=== PATIENT | female | born 1940 | race African-American/Black ===

== ENCOUNTER 2020-10-05 16:10 | Emergency (ER) | payer OTHER ==
[~2020-10-05] VITALS: Ht 149.9 cm; Wt 66.2 kg
[2020-10-05 21:48] VITALS: BP 189/68
== END 2020-10-06 00:39 | disposition home or self-care (01) ==
LOC: ER 16:10
DX: S09.90XA Unspecified injury of head, initial encounter (principal); S16.1XXA Strain of muscle, fascia and tendon at neck level, initial encounter; S00.83XA Contusion of other part of head, initial encounter; X58.XXXA Exposure to other specified factors, initial encounter; Y93.89 Activity, other specified; Y92.89 Other specified places as the place of occurrence of the external cause; Y99.8 Other external cause status
CPT/HCPCS: 70450; 72125; 93005

== ENCOUNTER 2022-08-26 05:03 | Inpatient (IN) | payer OTHER, MEDICAID ==
[~2022-08-26] VITALS: Ht 149.9 cm; Wt 64.8 kg
[2022-08-26] VITALS (16 sets, daily range): BP systolic 112–184; BP diastolic 49–98
[2022-08-26] MEDS ORDERED: HEPARIN SODIUM (PORCINE) 5000 UNITS/ML 1ML VIAL ONE ×3 (05:11→05:54)
[2022-08-26] MEDS ORDERED: CLOPIDOGREL 300 MG TAB ONE (05:11)
[2022-08-26] MEDS ORDERED: CLOPIDOGREL BISULFATE 75 MG TAB PO ONE (05:15)
[2022-08-26] MEDS ORDERED: ATORVASTATIN 20 MG TAB PO ONE (05:15)
[2022-08-26] MEDS ORDERED: HEPARIN 1,000 UNITS/ml 1ML VIAL IV ONE (05:15)
[2022-08-26] MEDS ORDERED: HEPARIN SODIUM (PORCINE) 5000 UNITS/ML 1ML VIAL IV ONE (05:15)
[2022-08-26] MEDS ORDERED: TICAGRELOR 90 MG TAB PO ONE (05:15)
[2022-08-26 05:34] LABS: Basophils # (auto) 0.1 10 ^3/uL (0-0.2); Basophils % (auto) 0.4 % (0.0-2.0); Eosinophils # (auto) 0 10 ^3/uL (0-0.8); Eosinophils % (auto) 0.2 % (0.0-7.0); Hematocrit 42.1 % (36.0-46.0); Hemoglobin 13.8 g/dL (12.2-16.2); Lymphocytes # (auto) 3.6 10 ^3/uL (0.4-5.4); Mean Corpuscular Hemoglobin 30.2 pg (28.0-32.0); Mean Corpuscular Hgb Conc. 32.7 g/dL (32.0-36.0); Mean Corpuscular Volume 92.5 fL (80.0-100.0); Monocytes # (auto) 0.8 10 ^3/uL (0-1.3); Monocytes % (auto) 4.9 % (0.0-12.0); Neutrophils % (auto) 72.5 % (37.0-80.0); Red Blood Cells 4.56 10^6/uL (4.0-5.20); Red Cell Distribution Width 14.2 % (11.8-14.3); White Blood Cell 16.5 10^3/uL (4.4-10.8)
[2022-08-26] MEDS ORDERED: MORPHINE SULFATE INJ 2 MG/ml SYRG ONE (05:42)
[2022-08-26] MEDS ORDERED: NITROGLYCERIN 0.4 MG SL TAB SL ONE (05:42)
[2022-08-26] MEDS ORDERED: MORPHINE SULFATE 4 MG/ML SYR/VIAL IV ONE (05:45)
[2022-08-26] MEDS ORDERED: NITROGLYCERIN 0.4 MG SL TAB SL PRN ×2 (05:45→06:00)
[2022-08-26 05:48] LABS: Albumin 3.7 g/dL (3.4-5.0); Calcium 10.1 mg/dL (8.5-10.1); Magnesium 2.1 mg/dL (1.6-2.6)
[2022-08-26 05:52] LABS: BUN/Creatinine Ratio 20.7 (10.0-20.0); Bilirubin, Total 0.3 mg/dL (0.2-1.0); Total Protein 7.4 g/dL (6.4-8.2)
[2022-08-26] MEDS ORDERED: HEPARIN IN NS 1000Units/500mL 1,500 ML ONE (05:52)
[2022-08-26] MEDS ORDERED: IODIXANOL 320MG/ML 100ML BTL IV ONE (05:52)
[2022-08-26] MEDS ORDERED: LIDOCAINE 2%HCL (LOCAL ANESTH.) INJ 20ML MDV ONE (05:52)
[2022-08-26] MEDS ORDERED: ANGIOMAX 250 MG VIAL IV ONE (05:53)
[2022-08-26] MEDS ORDERED: fentaNYL CITRATE 100 MCG/2 ML VL ONE (05:54)
[2022-08-26] MEDS ORDERED: SODIUM CHL 0.9% 50 ML ONE (05:54)
[2022-08-26] MEDS ORDERED: MIDAZOLAM HCL 2MG/2ML 2ml VIAL (1mg/ml) ONE (05:54)
[2022-08-26] MEDS ORDERED: VERAPAMIL 2.5MG/ML INJ 2ML VIAL IV ONE (05:55)
[2022-08-26] MEDS ORDERED: DEXTROSE (50%) 50ML SYRG IV PRN (06:00)
[2022-08-26] MEDS ORDERED: HYDROcodone-ACET 5/325MG TAB PO PRN (06:00)
[2022-08-26] MEDS ORDERED: DOCUSATE SOD 100 MG CAP PO PRN (06:00)
[2022-08-26] MEDS ORDERED: MORPHINE SULFATE INJ 2 MG/ml SYRG IV PRN (06:00)
[2022-08-26] MEDS ORDERED: ACETAMINOPHEN 325 MG TAB PO PRN (06:00)
[2022-08-26] MEDS: SODIUM CHLORIDE 0.9% 1,000 ML IV SCH ×2 (06:00→22:40)
[2022-08-26] MEDS ORDERED: cefTRIAXone 1GM/50ML D5W 50 ML IV ONE (06:00)
[2022-08-26 06:03] LABS: INR 1.01 (0.9-1.15)
[2022-08-26 06:15] LABS: Partial Thromboplastin Time > 139.0 sec (24.6-33.4)
[2022-08-26 06:20] LABS: Urine Bacteria FEW /hpf (None Seen); Urine Blood Negative /uL (Negative); Urine Hyaline Cast FEW /lpf (0 - 2); Urine Mucus FEW (None Seen); Urine Specific Gravity 1.015 (1.001-1.035); Urine WBC 2 /hpf (0 - 5)
[2022-08-26] MEDS ORDERED: EPTIFIBATIDE INJ (2MG/ML) 10ML VIAL IV ONE ×2 (06:31→06:57)
[2022-08-26] MEDS ORDERED: ATROPINE SULF 1 MG/10ml SYR ONE (06:43)
[2022-08-26] MEDS ORDERED: IOHEXOL 350 MG/ML 100ML IJ ONE (06:54)
[2022-08-26] MEDS ORDERED: EPTIFIBATIDE DRIP(0.75MG/ML) 100 ML IV ONE (06:54)
[2022-08-26] MEDS: InsuLIN REG 1unit/0.01ml Soln (100units/ml) SC SCH ×4 (07:00→21:45)
[2022-08-26] MEDS: TICAGRELOR 90 MG TAB PO SCH ×2 (07:39→21:45)
[2022-08-26] MEDS: EPTIFIBATIDE DRIP(0.75MG/ML) 100 ML IV SCH ×2 (07:39→15:35)
[2022-08-26] MEDS ORDERED: CLOPIDOGREL BISULFATE 75 MG TAB PO SCH (10:00)
[2022-08-26] MEDS: MORPHINE SULFATE INJ 2 MG/ml SYRG IV PRN ×2 (10:45→17:17)
[2022-08-26] MEDS: hydrALAZINE HCL 20 MG/ML VL IV PRN ×2 (10:46→17:15)
[2022-08-26] MEDS: ONDANSETRON HCL 4 MG/2 ML VIAL IV PRN ×2 (10:47→18:30)
[2022-08-26] MEDS: ACCU-CHEK COMFORT CURVE STRIP VI SCH ×3 (11:30→21:45)
[2022-08-26] MEDS ORDERED: MEMA1TAB5 PO (12:04)
[2022-08-26] MEDS ORDERED: LATA0.0019 EACHEYE (12:04)
[2022-08-26] MEDS ORDERED: TIMO0.5S32 EACHEYE (12:04)
[2022-08-26] MEDS ORDERED: ATOR10TA52 PO (12:04)
[2022-08-26] MEDS ORDERED: DAPA1TAB PO (12:04)
[2022-08-26] MEDS ORDERED: AMLO-496 PO (12:04)
[2022-08-26] MEDS ORDERED: MIRA50TA PO (12:05)
[2022-08-26] MEDS: MEMANTINE HCL 5 MG TAB PO SCH (12:11)
[2022-08-26] MEDS: ASPirin 81 mg TAB PO SCH (12:11)
[2022-08-26] MEDS: FAMOTIDINE (10MG/ML) 2ML VL IV SCH (12:11)
[2022-08-26] MEDS: ATORVASTATIN 20 MG TAB PO SCH (21:45)
[2022-08-27 05:00] VITALS: BP 125/70
[2022-08-27] MEDS: ACCU-CHEK COMFORT CURVE STRIP VI SCH ×4 (06:32→22:00)
[2022-08-27] MEDS: InsuLIN REG 1unit/0.01ml Soln (100units/ml) SC SCH ×4 (06:32→21:46)
[2022-08-27] MEDS: cefTRIAXone 1GM/50ML D5W 50 ML IV SCH (08:56)
[2022-08-27] MEDS: MEMANTINE HCL 5 MG TAB PO SCH (08:56)
[2022-08-27] MEDS: ASPirin 81 mg TAB PO SCH (08:56)
[2022-08-27] MEDS: TICAGRELOR 90 MG TAB PO SCH ×2 (08:56→21:52)
[2022-08-27] MEDS: FAMOTIDINE (10MG/ML) 2ML VL IV SCH (08:56)
[2022-08-27] MEDS ORDERED: BRIM0.159 OP (10:15)
[2022-08-27 13:00] VITALS: BP 133/51
[2022-08-27 17:00] VITALS: BP 131/57
[2022-08-27] MEDS: ATORVASTATIN 20 MG TAB PO SCH (21:51)
[2022-08-27 22:00] VITALS: BP 138/79
[2022-08-28 05:00] VITALS: BP 171/74
[2022-08-28] MEDS: InsuLIN REG 1unit/0.01ml Soln (100units/ml) SC SCH ×4 (05:34→22:00)
[2022-08-28] MEDS: ACCU-CHEK COMFORT CURVE STRIP VI SCH ×4 (05:39→22:00)
[2022-08-28 07:12] LABS: Basophils # (auto) 0 10 ^3/uL (0-0.2); Basophils % (auto) 0.1 % (0.0-2.0); Eosinophils # (auto) 0.1 10 ^3/uL (0-0.8); Eosinophils % (auto) 0.9 % (0.0-7.0); Hematocrit 37.9 % (36.0-46.0); Hemoglobin 12.2 g/dL (12.2-16.2); Lymphocytes # (auto) 2.3 10 ^3/uL (0.4-5.4); Lymphocytes % (auto) 24.3 % (10.0-50.0); Mean Corpuscular Hemoglobin 30.8 pg (28.0-32.0); Mean Corpuscular Hgb Conc. 32.2 g/dL (32.0-36.0); Mean Corpuscular Volume 95.8 fL (80.0-100.0); Monocytes # (auto) 0.8 10 ^3/uL (0-1.3); Monocytes % (auto) 8.5 % (0.0-12.0); Neutrophils # (auto) 6.4 10 ^3/uL (1.6-8.6); Neutrophils % (auto) 66.2 % (37.0-80.0); Red Blood Cells 3.96 10^6/uL (4.0-5.20); Red Cell Distribution Width 14.6 % (11.8-14.3); White Blood Cell 9.7 10^3/uL (4.4-10.8)
[2022-08-28 07:28] LABS: Anion Gap 9 (5-15); BUN/Creatinine Ratio 27.5 (10.0-20.0); Blood Urea Nitrogen 25 mg/dL (7-18); Calcium 8.5 mg/dL (8.5-10.1); Carbon Dioxide 17 mmol/L (21-32); Chloride 111 mmol/L (98-107); GFR African American 76 mL/min; GFR Non-African American 63 mL/min; Glucose 135 mg/dL (74-106); Potassium 4.1 mmol/L (3.5-5.1); Sodium 137 mmol/L (136-145)
[2022-08-28] MEDS: ASPirin 81 mg TAB PO SCH (08:59)
[2022-08-28] MEDS: cefTRIAXone 1GM/50ML D5W 50 ML IV SCH (08:59)
[2022-08-28] MEDS: MEMANTINE HCL 5 MG TAB PO SCH (08:59)
[2022-08-28] MEDS: FAMOTIDINE (10MG/ML) 2ML VL IV SCH (08:59)
[2022-08-28 09:00] VITALS: BP 154/66
[2022-08-28] MEDS: TICAGRELOR 90 MG TAB PO SCH ×2 (09:00→22:06)
[2022-08-28 13:00] VITALS: BP 151/59
[2022-08-28] MEDS ORDERED: ASPI-325 PO (15:35)
[2022-08-28] MEDS ORDERED: METO-6 PO (15:35)
[2022-08-28] MEDS ORDERED: TICA90TA PO (15:35)
[2022-08-28] MEDS: METOPROLOL SUCCINATE XL 50 MG TAB PO SCH (16:58)
[2022-08-28 17:00] VITALS: BP 145/61
[2022-08-28 22:00] VITALS: BP 136/68
[2022-08-28] MEDS: ATORVASTATIN 20 MG TAB PO SCH (22:06)
[2022-08-29 04:53] VITALS: BP 145/56
[2022-08-29] MEDS: InsuLIN REG 1unit/0.01ml Soln (100units/ml) SC SCH ×2 (05:37→13:21)
[2022-08-29] MEDS: ACCU-CHEK COMFORT CURVE STRIP VI SCH ×2 (06:30→11:30)
[2022-08-29 09:00] VITALS: BP 138/68
[2022-08-29] MEDS: MEMANTINE HCL 5 MG TAB PO SCH (10:17)
[2022-08-29] MEDS: ASPirin 81 mg TAB PO SCH (10:17)
[2022-08-29] MEDS: TICAGRELOR 90 MG TAB PO SCH (10:18)
[2022-08-29] MEDS: METOPROLOL SUCCINATE XL 50 MG TAB PO SCH (10:19)
[2022-08-29] MEDS ORDERED: ATOR40TA52 PO (11:53)
[2022-08-29 13:00] VITALS: BP 158/68
[2022-08-29 13:36] VITALS: BP 138/68
== END 2022-08-29 15:52 | disposition home or self-care (01) | DRG 247 ==
LOC: EDBD 05:03 → ER 05:03 → CATH 1 05:42 → OVERFLOW 05:59 → TELE-WESTW 09:22
PROVIDERS: ADMIT Nurse Practitioner Family; ATTEND Nurse Practitioner Acute Care
PROC: 027034Z Dilation of Coronary Artery, One Artery with Drug-eluting Intraluminal Device, Percutaneous Approach (ICD-10-PCS; principal; 2022-08-26)
PROC: 4A023N7 Measurement of Cardiac Sampling and Pressure, Left Heart, Percutaneous Approach (ICD-10-PCS; 2022-08-26)
PROC: B211YZZ Fluoroscopy of Multiple Coronary Arteries using Other Contrast (ICD-10-PCS; 2022-08-26)
PROC: B215YZZ Fluoroscopy of Left Heart using Other Contrast (ICD-10-PCS; 2022-08-26)
DX: I21.19 ST elevation (STEMI) myocardial infarction involving other coronary artery of inferior wall (principal); R65.10 Systemic inflammatory response syndrome (SIRS) of non-infectious origin without acute organ dysfunction; E11.65 Type 2 diabetes mellitus with hyperglycemia; F03.90 Unspecified dementia, unspecified severity, without behavioral disturbance, psychotic disturbance, mood disturbance, and anxiety; I10 Essential (primary) hypertension; D72.829 Elevated white blood cell count, unspecified; E78.00 Pure hypercholesterolemia, unspecified; I25.10 Atherosclerotic heart disease of native coronary artery without angina pectoris; Z79.02 Long term (current) use of antithrombotics/antiplatelets; Z79.899 Other long term (current) drug therapy; Z95.5 Presence of coronary angioplasty implant and graft
CPT/HCPCS: 36415; 71045; 80048; 80053; 81001; 82962; 83735; 83880; 84484; 85025; 85610; 85730; 92928; 93005; 93306; 93458; 93971; 96374; 96375; 99152; 99153; G0378; J0696; J1815; J2250; J2405; J3490; Q9967

== ENCOUNTER 2023-06-19 00:05 | Emergency (ER) | payer OTHER, MEDICAID ==
[~2023-06-19] VITALS: Ht 149.9 cm; Wt 53.6 kg
[~2023-06-19 00:05] MED LIST: AMLO1TAB23 PO; ASPI-325 PO; ATOR40TA52 PO; BRIM0.159 OP; DAPA1TAB PO; LATA0.008 EACHEYE; MEMA1TAB5 PO; METO-6 PO; MIRA50TA PO; TICA90TA PO; TIMO0.5S32 EACHEYE
[2023-06-19] MEDS ORDERED: INDO-34 PO (02:10)
[2023-06-19 02:50] VITALS: BP 133/66; PULSE 87; RESP 14; TEMP 98.4; O2SAT 99
[2023-06-19] MEDS: KETOROLAC TROMETH 60MG/2ML VIAL IM ONE (02:52)
== END 2023-06-19 03:07 | disposition home or self-care (01) ==
LOC: ER 00:05
DX: M10.9 Gout, unspecified (principal); I10 Essential (primary) hypertension; E11.9 Type 2 diabetes mellitus without complications; E78.5 Hyperlipidemia, unspecified; Z79.82 Long term (current) use of aspirin; Z79.899 Other long term (current) drug therapy
CPT/HCPCS: 96372; 99283; J1885

== ENCOUNTER 2024-04-06 09:24 | Emergency (ER) | payer MEDICARE, MEDICAID ==
[~2024-04-06] VITALS: Ht 149.9 cm; Wt 52.0 kg
[~2024-04-06 09:24] MED LIST changes: +INDO-34 PO
[2024-04-06 10:44] VITALS: BP 161/64; PULSE 75; RESP 16; TEMP 98.7; O2SAT 98
--- NOTE | 2024-04-06 10:57 | ED.PDOC ---
Musculoskeletal HPI Comments Pleasant 83-year-old female with a history of hypertension glaucoma arthritis diabetes that is brought in by daughter with a chief complaint of atraumatic nonradiating left anterior patella pain x1 day. Onset was sudden and occurred last night before going to bed and pain has been persistent since. Pain is currently rated as moderate to severe and worsens with flexion-extension of the knees. Symptoms worsened with ambulation and improves at rest. Has not tried medications that alleviate her pain. Denies trauma to the knee or recent fall Denies skin color changes around the knee Denies masses around the knee Denies popping/locking/giving out of the knee Denies fever chills night sweats nausea vomiting Denies previous surgeries to the knee nor significant injury Chief Complaint: Lower Extremity Time Seen by MD: 10:00 Primary Care Provider: Jerson Reviewed Notes: Nurses Notes, Medications, Allergies Allergies: Coded Allergies: NO KNOWN ALLERGIES (Unverified , 11/10/14) Home Meds Active Scripts Diclofenac Sodium (Topical) (Voltaren Arthritis Pain) 1 % Gel, 1 GRAMS EX TID for 10 Days, #60 GRAMS 0 Refills Prov:BHARATHI LÓPEZ GARMENT STEAMER 04/06/24 Prednisone (Prednisone) 20 Mg Tab, 40 MG PO DAILY for 5 Days, #10 TAB 0 Refills Prov:BHARATHI LÓPEZ GARMENT STEAMER 04/06/24 Indomethacin (Indocin) 25 Mg Cp, 1 CAP PO TID PRN, #60 CAP Prov:KADEN QUINN DO 06/19/23 Atorvastatin Calcium (ATORVASTATIN CALCIUM) 40 Mg Tab, 1 TAB PO DAILY, #90 TAB 1 Refill Prov:OSMAN WESTBROOK GARMENT STEAMER 08/29/22 Ticagrelor Base (BRILINTA) 90 Mg Tab, 90 MG PO BID for 90 Days, #180 TAB Prov:OSMAN WESTBROOK GARMENT STEAMER 08/28/22 Aspirin (Aspirin Low Dose) 81 Mg Tab, 81 MG PO DAILY for 60 Days, #60 TAB Prov:OSMAN WESTBROOK GARMENT STEAMER 08/28/22 Metoprolol Succinate (Toprol Xl) 50 Mg Tab, 25 MG PO DAILY for 60 Days, #30 TAB Prov:OSMAN WESTBROOK GARMENT STEAMER 08/28/22 Reported Medications Brimonidine Tartrate (Brimonidine Tartrate) 0.15 % Rosario, 1 DROP OP DAILY, DROP 08/27/22 Mirabegron Base (MYRBETRIQ) 50 Mg Tab, 50 MG PO DAILY, TAB 08/26/22 Memantine Hydrochloride (Memantine HCl) 10 Mg Tab, 1 TAB PO BID 08/26/22 Dapagliflozin-Metformin HCl (Xigduo Xr 10-1000 mg) 1 Tab Tab, 1 TAB PO DAILY 08/26/22 Amlodipine Besylate (Amlodipine Besylate) 10 Mg Tab, 1 TAB PO DAILY 08/26/22 Latanoprost (LATANOPROST) 0.005 % Rosario, EACHEYE 08/26/22 Timolol Maleate (Ophth) (Timolol Maleate) 0.5 % Rosario, EACHEYE 08/26/22 Information Source: Patient Mode of Arrival: Wheelchair Past Medical History PAST MEDICAL HISTORY: DM, High Lipids, HTN Surgical History: Denies all surgeries CROP DUSTER History: No Pertinent CROP DUSTER History Family History Family History: Reviewed,noncontributory to illness, Unobtainable Social History Smoker: Non-Smoker Alcohol: Denies ETOH Use Drugs: Denies Drug Use Lives In: Home All Other Systems: Reviewed and Negative (Per HPI) Physical Exam General Appearance: No Apparent Distress, Normal HEENT: Normal ENT Inspection, Pharynx Normal, TMs Normal Neck: Full Range of Motion, Non-Tender, Normal, Normal Inspection Respiratory: Chest Non-Tender, Lungs Clear, No Accessory Muscle Use, No Respiratory Distress, Normal Breath Sounds Cardiovascular: No Edema, No JVD, No Murmur, No Gallop, Normal Peripheral Pulses, Regular Rate/Rhythm Breast Exam: Deferred Gastrointestinal: No Organomegaly, Non Tender, No Pulsatile Mass, Normal Bowel Sounds, Soft Genitalia: Deferred Pelvic: Deferred Rectal: Deferred Extremities: No calf tenderness, Normal capillary refill, Normal inspection, Normal range of motion, Non-tender, No pedal edema Musculoskeletal : Location: Left Extremity Location: Knee (Normal on inspection. Full flexion-extension. Full passive and active range of motion.) Apperance: Normal Neurologic: Alert, supervisor webbing II-XII nml as Tested, No Motor Deficits, Normal Affect, Normal Mood, No Sensory Deficits Cerebellar Function: Normal Reflexes: Normal Skin: Dry, Normal Color, Warm Lymphatic: No Adenopathy Was a procedure done? Was a procedure done?: No Differential Diagnosis EXT Differential Diagnosis: Sprain, Arthritis, Other X-Ray, Labs, Meds, VS Vital Signs Date Time Temp Pulse Resp B/P (MAP) Pulse Ox O2 Delivery O2 Flow Rate FiO2 04/06/24 10:44 75 16 98 Room Air 04/06/24 10:44 98.7 75 16 161/64 (96) 98 98.7 04/06/24 09:59 98.7 75 16 161/64 (96) 98 Current Medications Medications (Trade) Dose Ordered Sig/Isaac Route Start Time Stop Time Status Last Admin Acetaminophen/ Hydrocodone Bitart ([place] 5/325MG Tab) 1 tab ONCE ONCE PO 04/06/24 11:00 04/06/24 11:01 DC 04/06/24 11:15 PATIENT: RAYO PATRICIA LACCT: [id number]: [id number] : 1940 LOC: ER ROOM / BED: / AGE / SEX: 83 / F ADM STATUS: REG ER SERVICE 1055 ORDERING PHYSICIAN: BHARATHI LÓPEZ GARMENT STEAMER PROCEDURE(s): LKNE4 - L KNEE 4V XRAY REASON: Pain/OA?? ORDER NUMBER(s): [id number], ACCESSION NUMBER(s): [id number] CLINICAL INDICATION: Pain/OA TECHNIQUE: 4 radiographic views of the left knee were obtained. Comparison: None FINDINGS/IMPRESSION: There is no evidence of acute fracture or dislocation. Superior patellar enthesophyte. The visualized joint space is well maintained. The alignment is anatomical. There is no radiopaque foreign body. ATED BY: GREGORIA FRAUSTO MD DICTATED DATE/TIME: 04/06/24 113 SIGNED BY: GREGORIA FRAUSTO MD SIGNED DATE/TIME: 04/06/24 113 CC: X-Ray, Labs, Meds, VS Comment Pleasant 83-year-old female with a history of hypertension glaucoma arthritis diabetes that is brought in by daughter with a chief complaint of atraumatic non radiating left anterior patella pain x1 day. History obtained from patient Although considered I do not think the patient needs CBC labs nor UA as patient is alert oriented denies any associated symptoms X-ray was ordered to rule out arthritis and findings show Superior patellar enthesophyte. Medication was prescribed for the presenting symptoms Copy of x-ray was given to the patient's and advised to follow up with PCP return precautions discussed Time of 1ST Reevaluation: 11:54 Reevaluation 1ST: Improved Patient Education/Counseling: Diagnosis, Treatment Family Education/Counseling: Diagnosis, Treatment Departure 1 Departure Time of Disposition: 11:56 Impression: Primary Impression: Pain of left patella Disposition: 01 HOME / SELF CARE / HOMELESS Condition: Stable e-Prescriptions Diclofenac Sodium (Topical) (Voltaren Arthritis Pain) 1 % Gel 1 GRAMS EX TID for 10 Days, #60 GRAMS 0 Refills Prov: BHARATHI LÓPEZ NP 04/06/24 Prednisone (Prednisone) 20 Mg Tab 40 MG PO DAILY for 5 Days, #10 TAB 0 Refills Prov: BHARATHI LÓPEZ NP 04/06/24 Discharged With: Relative Critical Care Note Critical Care Time?: No Stability Stability form required: No Heart Score Heart Score: Heart Score Response (Comments) Value History N/A 0 EKG N/A 0 Age N/A 0 Risk Factors N/A 0 Troponin N/A 0 Total 0 BHARATHI LÓPEZ NP Apr 06, 2024 10:57
[2024-04-06] MEDS: HYDROcodone-ACET 5/325MG TAB PO ONE (11:15)
--- NOTE | 2024-04-06 11:35 | DVH ---
CLINICAL INDICATION: Pain/OA TECHNIQUE: 4 radiographic views of the left knee were obtained. Comparison: None FINDINGS/IMPRESSION: There is no evidence of acute fracture or dislocation. Superior patellar enthesophyte. The visualized joint space is well maintained. The alignment is anatomical. There is no radiopaque foreign body.
[2024-04-06] MEDS ORDERED: DICL1GEL59 EX (11:56)
[2024-04-06] MEDS ORDERED: PRED20TA2 PO (11:56)
== END 2024-04-06 12:42 | disposition home or self-care (01) ==
LOC: ER 09:24
DX: M25.562 Pain in left knee (principal); I10 Essential (primary) hypertension; E11.9 Type 2 diabetes mellitus without complications; Z79.02 Long term (current) use of antithrombotics/antiplatelets; Z79.52 Long term (current) use of systemic steroids; Z79.82 Long term (current) use of aspirin; Z79.84 Long term (current) use of oral hypoglycemic drugs; Z79.899 Other long term (current) drug therapy
CPT/HCPCS: 73564

== ENCOUNTER 2024-06-02 20:05 | Emergency (ER) | payer OTHER, MEDICAID ==
[~2024-06-02] VITALS: Ht 149.9 cm; Wt 50.0 kg
[~2024-06-02 20:05] MED LIST changes: +DICL1GEL59 EX; +PRED20TA2 PO
--- NOTE | 2024-06-02 21:24 | DVH ---
XY L FOOT 2 VIEW XRAY, June 02, 2024 INDICATION: swelling TECHNICAL DATA: Frontal, oblique and lateral views were obtained of the left foot. COMPARISON: None FINDINGS: There is moderate soft tissue swelling involving the dorsum of the foot in the lower extremity and ge neral there is a small osteophyte projecting from the attachment of the plantar fascia calcaneus. Ar ch is well-maintained bones are mildly osteopenic there are no fractures or dislocations or evidence for osteomyelitis or destructive changes. The articulations appear to be normal. There is some eviden ce for interdigital arterial sclerosis involving the space between the 1st and 2nd metatarsals IMPRESSION: 1. Swelling. And atherosclerotic changes.
--- NOTE | 2024-06-02 22:10 | ED.PDOC ---
History of Present Illness HPI Comments 84 y/o F, with a Hx of arthritis, dementia, DM, glaucoma, gout, HLD, HTN, [place], PTCA, and TIA, presents with daughter for c/o 1st digit on left foot pain, swelling, and redness and left-ankle swelling, today. Per daughter, patient endorses on noticing symptoms to her foot that have been ongoing for the past 2x days. Patient also comments on ankle swelling that has been ongoing for a prolong period on time that she is unable to elaborate on. She endorses on no recent injuries, sick contact, travel, substance abuse, or other relevant or pertinent information, with exception of protein inclusive diet, lately. Patient has no reported chest pain, shortness of breath, fever, chills, numbness, tingling, or other associated symptoms or modifiers at this time. Chief Complaint: Lower Extremity Time Seen by MD: 21:30 Primary Care Provider: Jerson Reviewed Notes: Nurses Notes, Medications, Allergies Allergies: Coded Allergies: NO KNOWN ALLERGIES (Unverified , 11/10/14) Home Meds Active Scripts Diclofenac Sodium (Topical) (Voltaren Arthritis Pain) 1 % Gel, 1 GRAMS EX TID for 10 Days, #60 GRAMS 0 Refills Prov:BHARATHI LÓPEZ PRODUCTION LINE ASSEMBLER 04/06/24 Prednisone (Prednisone) 20 Mg Tab, 40 MG PO DAILY for 5 Days, #10 TAB 0 Refills Prov:BHARATHI LÓPEZ PRODUCTION LINE ASSEMBLER 04/06/24 Indomethacin (Indocin) 25 Mg Cp, 1 CAP PO TID PRN, #60 CAP Prov:KADEN QUINN DO 06/19/23 Atorvastatin Calcium (ATORVASTATIN CALCIUM) 40 Mg Tab, 1 TAB PO DAILY, #90 TAB 1 Refill Prov:OSMAN WESTBROOK PRODUCTION LINE ASSEMBLER 08/29/22 Ticagrelor Base (BRILINTA) 90 Mg Tab, 90 MG PO BID for 90 Days, #180 TAB Prov:OSMAN WESTBROOK PRODUCTION LINE ASSEMBLER 08/28/22 Aspirin (Aspirin Low Dose) 81 Mg Tab, 81 MG PO DAILY for 60 Days, #60 TAB Prov:OSMAN WE[place] PRODUCTION LINE ASSEMBLER 08/28/22 Metoprolol Succinate (Toprol Xl) 50 Mg Tab, 25 MG PO DAILY for 60 Days, #30 TAB Prov:OSMAN WESTBROOK PRODUCTION LINE ASSEMBLER 08/28/22 Reported Medications Brimonidine Tartrate (Brimonidine Tartrate) 0.15 % Rosario, 1 DROP OP DAILY, DROP 08/27/22 Mirabegron Base (MYRBETRIQ) 50 Mg Tab, 50 MG PO DAILY, TAB 08/26/22 Memantine Hydrochloride (Memantine HCl) 10 Mg Tab, 1 TAB PO BID 08/26/22 Dapagliflozin-Metformin HCl (Xigduo Xr 10-1000 mg) 1 Tab Tab, 1 TAB PO DAILY 08/26/22 Amlodipine Besylate (Amlodipine Besylate) 10 Mg Tab, 1 TAB PO DAILY 08/26/22 Latanoprost (LATANOPROST) 0.005 % Rosario, EACHEYE 08/26/22 Timolol Maleate (Ophth) (Timolol Maleate) 0.5 % Rosario, EACHEYE 08/26/22 Information Source: Patient, Relative (Child) Mode of Arrival: Wheelchair Severity: Moderate Timing: Days Duration: Since onset Prehospital treatment: None Past Medical History PAST MEDICAL HISTORY: Arthritis, Dementia, DM, Gout, High Lipids, HTN, [place], TIA Past Medical History (Other): glaucoma Surgical History: PTCA CANDY FORMING MACHINE OPERATOR History: No Pertinent CANDY FORMING MACHINE OPERATOR History Family History Family History: Reviewed,noncontributory to illness, Unobtainable Social History Smoker: Non-Smoker Alcohol: Denies ETOH Use Drugs: Denies Drug Use Lives In: Home Musculoskeletal: reports: others (1st digit on left foot pain and swelling, left-ankle swelling ) Integumetry: reports: others (redness to 1st digit on left foot ) All Other Systems: Reviewed and Negative (negative unless otherwise stated above or in HPI) Physical Exam General Appearance: No Apparent Distress, Normal HEENT: Normal ENT Inspection, Pharynx Normal, TMs Normal Neck: Full Range of Motion, Non-Tender, Normal, Normal Inspection Respiratory: Chest Non-Tender, Lungs Clear, No Accessory Muscle Use, No Respiratory Distress, Normal Breath Sounds Cardiovascular: No Edema, No JVD, No Murmur, No Gallop, Normal Peripheral Pulses, Regular Rate/Rhythm Breast Exam: Deferred Gastrointestinal: No Organomegaly, Non Tender, No Pulsatile Mass, Normal Bowel Sounds, Soft Genitalia: Deferred Pelvic: Deferred Rectal: Deferred Extremities: No calf tenderness, Normal capillary refill, Normal range of mil on, Non-tender, No pedal edema, Swelling (bilateral ankles, 1st digit on left foot ), Tender (1st digit on left foot) Musculoskeletal : Apperance: Normal Neurologic: Alert, account liaison II-XII nml as Tested, No Motor Deficits, Normal Affect, Normal Mood, No Sensory Deficits Cerebellar Function: Normal Reflexes: Normal Skin: Dry, Normal Color, Warm, Other (erythema to 1st digit on left foot ) Lymphatic: No Adenopathy Was a procedure done? Was a procedure done?: No Differential Dx Considerations may include: gout flare-up, cellulitis, dermatitis, musculoskeletal pain X-Ray, Labs, Meds, VS Vital Signs Date Time Temp Pulse Resp B/P (MAP) Pulse Ox O2 Delivery O2 Flow Rate FiO2 06/02/24 20:25 97.9 71 18 125/61 (82) 99 Lab Test 06/02/24 22:01 Range/Units Uric Acid 8.1 H 3.1-7.8 mg/dL [place] [id number] Ph: [phone] DIAGNOSTIC IMAGING Diagnostic Imaging Report : [id number] Signed PATIENT: RAYO PATRICIA LACCT: [id number] UNIT: [id number] : 1940 LOC: ER ROOM / BED: / AGE / SEX: 84 / F ADM STATUS: REG ER SERVICE 45 ORDERING PHYSICIAN: SANDRA TENORIO MD PROCEDURE(s): LFOT2 - L FOOT 2 VIEW XRAY REASON: swelling ORDER NUMBER(s): [id number], ACCESSION NUMBER(s): [id number] XY L FOOT 2 VIEW XRAY, June 02, 2024 INDICATION: swelling TECHNICAL DATA: Frontal, oblique and lateral views were obtained of the left foot. COMPARISON: None FINDINGS: There is moderate soft tissue swelling involving the dorsum of the foot in the lower extremity and general there is a small osteophyte projecting from the attachment of the plantar fascia calcaneus. Arch is well-maintained bones are mildly osteopenic there are no fractures or dislocations or evidence for osteomyelitis or destructive changes. The articulations appear to be normal. There is some evidence for interdigital arterial sclerosis involving the space between the 1st and 2nd metatarsals IMPRESSION: 1. Swelling. And atherosclerotic changes. ATED BY: LINO THAYER MD DICTATED DATE/TIME: 06/02/242120 SIGNED BY: LINO THAYER MD SIGNED DATE/TIME: 06/02/242120 CC: Your The patient is taking allopurinol for colchicine to of air symptoms. She can as an outpatient follow up with the primary care physician. Time of 1ST Reevaluation: 22:00 Reevaluation 1ST: Unchanged Patient Education/Counseling: Diagnosis, Treatment Family Education/Counseling: Diagnosis, Treatment Departure 1 Departure Time of Disposition: 22:58 Impression: Primary Impression: Gout Qualified Codes: M10.9 - Gout, unspecified Disposition: HOME / SELF CARE / HOMELESS Condition: Stable Additional Instructions: Reassessed patient, vital signs stable. Denies any new symptoms. Patient is able to tolerate PO and ambulate/be mobile at their baseline without concern. Risks and benefits of all medications given or prescribed, if any, discussed. All lab work, imaging and diagnostic studies were reviewed by me. The patient was counseled extensively on my clinical impression, diagnosis, expected course of the disease, and plan, including their follow-up care. Will discharge patient. Patient instructed to follow up with Primary Care Physician within 24-48 hours. Strict return precautions given for further exacerbation of symptoms or for new symptoms. The patient was given the opportunity to ask questions and all questions were answered by myself and the nursing/tech staff. Patient is in agreement with the care plan. The patient verbally expressed understanding of the discharge instructions, including the reasons to return to the Emergency Department. e-Prescriptions Colchicine (Colchicine) 0.6 Mg Cap 0.6 MG PO QIDPRN, #10 CAP Prov: SANDRA TENORIO MD 06/02/24 Discharged With: Relative Critical Care Note Critical Care Time?: No Stability Stability form required: No Heart Score Heart Score: Heart Score Response (Comments) Value History N/A 0 EKG N/A 0 Age N/A 0 Risk Factors N/A 0 Troponin N/A 0 Total 0 I personally scribed for SANDRA TENORIO MD ([email or web address]) on 06/02/24 at 22:10. Electronically submitted by Erich Galaviz ([email or web address]). SANDRA TENORIO MD Jun 02, 2024 22:10
[2024-06-02] MEDS ORDERED: COLC1CAP PO (22:59)
[2024-06-03] MEDS: COLCHICINE 0.6 MG CAP PO ONE (02:22)
[2024-06-03 02:32] VITALS: BP 129/59; PULSE 68; RESP 17; TEMP 98; O2SAT 98
== END 2024-06-03 02:37 | disposition home or self-care (01) ==
LOC: ER 20:05
DX: M10.9 Gout, unspecified (principal); I10 Essential (primary) hypertension; E11.9 Type 2 diabetes mellitus without complications; E78.5 Hyperlipidemia, unspecified; F03.90 Unspecified dementia, unspecified severity, without behavioral disturbance, psychotic disturbance, mood disturbance, and anxiety; M19.90 Unspecified osteoarthritis, unspecified site; Z79.82 Long term (current) use of aspirin; Z79.84 Long term (current) use of oral hypoglycemic drugs; Z79.899 Other long term (current) drug therapy; Z86.73 Personal history of transient ischemic attack (TIA), and cerebral infarction without residual deficits
CPT/HCPCS: 36415; 73620; 84550